=== PATIENT | male | born 1995 | race Caucasian/White ===

== ENCOUNTER → 2020-04-22 | Day surgery (SDC) | payer BC ==
[~2020-04-22] VITALS: Ht 188 cm; Wt 97.1 kg
[~2020-04-22] MED LIST: EPINEPHrine HCL 1 MG/1 ML AMP ONE; HYDR-531 PO; HYDROmorphone HCL 2 MG/ML VL IV PRN; MIDAZOLAM HCL 1MG/1ML-2 ML VIAL ONE; ONDANSETRON HCL 4 MG/2 ML VIAL IV PRN; PROPOFOL 10 MG/ML 20 ML IV ONE; ROPIVACAINE 0.5% (5MG/ML) 20ML AMPULE IJ ONE; SUCCINYLCHOLINE CHLORIDE 20 MG/ML 10ML VIAL IV ONE; ceFAZolin 1GM/50ML 50 ML IV ONE; ePHEDrine SULFATE 50 MG/ML AMP IV PRN; fentaNYL CITRATE 100 MCG/2 ML VL IV ONE; fentaNYL CITRATE 100 MCG/2 ML VL ONE; hydrALAZINE HCL 20 MG/ML VL IV PRN
[2020-04-22 13:55] VITALS: BP 153/97
== END | disposition home or self-care (01) ==
LOC: SUR 08:14 → EDSEX 12:15
PROVIDERS: ATTEND Orthopaedic Surgery
DX: S83.512A Sprain of anterior cruciate ligament of left knee, initial encounter (principal); M23.204 Derangement of unspecified medial meniscus due to old tear or injury, left knee; Z98.890 Other specified postprocedural states; Z79.899 Other long term (current) drug therapy; Z20.828 Contact with and (suspected) exposure to other viral communicable diseases; Z88.8 Allergy status to other drugs, medicaments and biological substances; X58.XXXA Exposure to other specified factors, initial encounter; Y93.89 Activity, other specified; Y92.89 Other specified places as the place of occurrence of the external cause; Y99.8 Other external cause status
CPT/HCPCS: 29879; 29880; 29888; C1713; C1762; J0171; J0330; J0690; J2250; J2704; J2795; J3010; U0003